=== PATIENT | female | born 1960 | race Caucasian/White ===

== ENCOUNTER → 2020-02-23 08:49 | Outpatient (REF) | payer OTHER, SELFPAY ==
--- NOTE | 2020-02-23 08:30 | CA_ITS ---
Transthoracic Echocardiogram Patient (Last, First, Middle): Marisa Hale J Gender: Female Date of : 1960 Age: 59 Procedure Date: 02/23/2020 Procedure Type: Transthoracic Echocardiogram Location: OP Height: 162.56 cm Weight: 80.74 kg BSA: 1.86 m2 Heart Rate: bpm BP: 122 / 60 mmHg Integration Director: Referring MD: Ozzie Johnson MD Symptoms: G45.9 TIA Study Quality: Fair ECG Rhythm: Sinus Conclusions: - The left ventricular systolic function is normal. The visually estimated ejection fraction is between 60-65%. - No obvious valvular pathology seen on this study. - If clinically indicated, consider bubble study to evaluate for interatrial shunting. Findings Left Ventricle Normal left ventricular cavity size. There is normal left ventricular wall thickness. The left ventricular systolic function is normal. The visually estimated ejection fraction is between 60-65%. There is no evidence of regional wall motion abnormalities. Diastolic function is normal for age. Right Ventricle Normal right ventricular cavity size and systolic function. Atria The left atrium is normal in size. The right atrium is normal in size. Aortic Valve There is a normal trileaflet aortic valve. There is no aortic valve stenosis. There is no aortic valve regurgitation. Mitral Valve The mitral valve appears normal. There is trace mitral valve regurgitation. There is no mitral valve stenosis. Pulmonic Valve The pulmonic valve was not well visualized. Tricuspid Valve Normal tricuspid valve structure. There is trace tricuspid valve regurgitation. The pulmonary artery systolic pressure is normal. Great Vessels The aortic annulus, sinuses of valsalva, and asc aorta are normal in size. Venous The inferior vena cava is normal in size and collapses greater than 50% with inspiration. Pericardium/Pleural There is no evidence of pericardial effusion. Prior Study Comparison No prior study available for comparison. Recommendations, Care & Conclusions No obvious valvular pathology seen on this study. Measurements 2D Linear Measurements IVSd: 0.95 0.6-0.9/0.6-1.0 cm LVIDd: 4.17 3.9-5.3/4.2-5.9 cm LVIDd Index: 2.24 2.4-3.2/2.2-3.1 cm/m2 LVIDs: 2.50 2.0-3.6 cm LVPWd: 0.94 0.7-1.1 cm Ao Root: 3.60 2.1-3.5 cm LA Diam: 2.20 2.7-3.8/3.0-4.0 cm LAIDs Index: 1.18 1.5-2.3 cm/m2 LV Mass: 155.92 67-162/88-224 g LV Mass Index: 83.83 43-95/49-115 g/m2 LVOT Diam: 2.30 3.0+(-)1.3 cm Mitral Valve MV Pk E: 0.45 MV PK A: 0.68 MV Decel Time: 176.00 E/A: 0.70 E'Lateral: 7.06 E'Medial: 6.29 E/E' Med: 7.10 E/E' Lat: 6.30 PHT: 52.00 MVA PHT: 4.23 Decel Door: 2.53 Aortic Valve AoV Pk Paco: 1.21 AoV Mn Paco: 0.88 AoV VTI: 0.29 AoV Pk Grad: 6.00 Aov Mn Grad: 3.00 JEANIE Cont.VTI: 2.85 LVOT LVOT Pk Paco: 0.87 LVOT Mn Paco: 0.58 LVOT VTI: 0.20 LVOT Pk Grad: 3.00 LVOT Mn Grad: 2.00 LVOT Diam: 2.30 LVOT Area: 4.15 Diastolic Function MV Pk E: 0.45 MV Pk A: 0.68 E/A: 0.70 E'Medial: 6.29 E/E' Med: 7.10 E' Laterial: 7.06 E/E' Lat: 6.30 Tricuspid Valve TR Pk Paco: 2.03 TR Pk Grad: 16.00 Great Vessels Aorta Ao Root-2D: 3.60 2.0-3.7 cm Ao Asc: 3.30 2.1-3.4 cm Pulmonary Valve PV Pk Paco: 0.76 Peak PV Grad: 2.00 Updated in Other Vendor System with Status of Final Humble Rivera MD electronically signed on 02/26/2020 10:14:03 AM with status of Final
--- NOTE | 2020-02-23 10:06 | US_ITS ---
EXAMINATION: US EXTRACRANIAL CAROTID DUPLEX, BILATERAL CLINICAL INFORMATION: Temporary aphasia COMPARISON: None TECHNIQUE: Real-time ultrasound and Doppler techniques (integrating B-mode 2-D vascular images, Doppler spectral analysis and color-flow Doppler imaging) were utilized to interrogate the extracranial carotid arteries, the vertebral arteries and proximal subclavian arteries bilaterally. The degree of stenosis is determined by criteria similar to NASCET. FINDINGS: Right Side: 1. There is no atherosclerotic plaque seen in the bifurcation/proximal ICA region. 2. The common carotid artery PSV proximally is 97.9 cm/s and distally 83.3 cm/s. 3. The proximal internal carotid artery velocities are 89.6 cm/s systolic and 35.4 cm/s diastolic. 4. The proximal external carotid artery PSV is 92.7 cm/s. 5. The vertebral artery shows antegrade flow. 6. The subclavian artery waveforms are normal. Left Side: 1. There is no atherosclerotic plaque seen in the bifurcation/proximal ICA region. 2. The common carotid artery PSV proximally is 101 cm/s and distally 85.6 cm/s. 3. The proximal internal carotid artery velocities are 87.4 cm/s systolic and 36.9 cm/s diastolic. 4. The proximal external carotid artery PSV is 68.4 cm/s. 5. The vertebral artery shows antegrade flow. 6. The subclavian artery waveforms are normal. IMPRESSION: 1. RIGHT: Normal right internal carotid artery without atherosclerotic plaque or hemodynamically significant stenosis. 2. LEFT: Normal left internal carotid artery without atherosclerotic plaque or hemodynamically significant stenosis.
== END ==
LOC: HO.CARD 08:49
PROVIDERS: Visit Provider Internal Medicine
DX: R47.01 Aphasia (principal)
CPT/HCPCS: 93306; 93880

== ENCOUNTER 2020-05-23 11:52 | Outpatient (REF) | payer OTHER, SELFPAY ==
[2020-05-23 12:18] LABS: COVID-19 Test Negative (Negative); IDNOW Serial# 55D5AD1C
== END 2020-05-23 11:53 | disposition home or self-care (01) ==
LOC: HO.EMPCOV 11:52
PROVIDERS: Visit Provider Internal Medicine
DX: Z20.828 Contact with and (suspected) exposure to other viral communicable diseases (principal)
CPT/HCPCS: 36415; 87635; C9803

== ENCOUNTER 2020-07-28 10:12 | Outpatient (REF) | payer OTHER, SELFPAY ==
[2020-07-28 13:33] LABS: MANUAL DIFF FLAG NO
[2020-07-28 13:39] LABS: Basophils Percent Auto 0.6 % (0-2); Eosinophils Absolute Auto 0.1 X10*3/uL (0.0-0.4); Eosinophils Percent Auto 1.9 % (0-4); Hematocrit 40.8 % (37-47); Hemoglobin 13.4 g/dl (12.0-16.0); Imm Gran Abs Auto 0.01 X10*3/uL (0.00-0.03); Imm Gran Pct Auto 0.2 % (0.0-0.4); Lymphocytes Absolute Auto 1.8 X10*3/uL (1.2-4.9); Lymphocytes Percent Auto 33.1 % (20-40); Mean Corpuscular HGB Conc 32.8 g/dl (31.0-35.0); Mean Corpuscular Hemoglobin 30.5 pg (27.0-33.0); Mean Corpuscular Volume 92.9 fL (80-98); Mean Platelet Volume 11.4 fL (9.4-12.3); Monocytes Absolute Auto 0.4 X10*3/uL (0.1-1.2); Monocytes Percent Auto 6.7 % (2-11); Neutrophils Absolute Auto 3.1 X10*3/uL (2.0-8.3); Neutrophils Percent Auto 57.5 % (45-73); Platelet Count 202 X10*3/uL (160-400); Red Blood Count 4.39 X10*6/uL (4.20-5.50); Red Cell Distribution Width 13.1 % (11.0-16.0); White Blood Count 5.4 X10*3/uL (4.8-10.8)
[2020-07-28 14:09] LABS: Alanine Aminotransferase 14 U/L (0-31); Anion Gap 12 (12-20); Aspartate Amino Transferase 14 U/L (5-31); Blood Urea Nitrogen 23 mg/dL (9-16); Calcium 9.5 mg/dL (8.4-10.2); Carbon Dioxide 27 mmol/L (22-29); Chloride 109 mmol/L (96-108); Cholesterol 155 mg/dL; Estimated Glomerular Filt Rate > 60; Glucose Fasting 104 mg/dL (60-99); HDL Cholesterol 55 mg/dL; LDL Cholesterol Calculated 81 mg/dl; Potassium 4.7 mmol/L (3.3-5.1); Sodium 143 mmol/L (135-145); Triglycerides 99 mg/dL
== END 2020-07-28 10:13 | disposition home or self-care (01) ==
LOC: HO.10HDL 10:12
PROVIDERS: Visit Provider Internal Medicine
DX: Z00.00 Encounter for general adult medical examination without abnormal findings (principal); E78.2 Mixed hyperlipidemia; Z51.81 Encounter for therapeutic drug level monitoring
CPT/HCPCS: 36415; 80048; 80061; 84450; 84460; 85025

== ENCOUNTER 2020-09-23 07:13 | Outpatient (REF) | payer OTHER, SELFPAY ==
--- NOTE | ~2020-09-23 | MM_ITS ---
EXAMINATION: MM SCREENING DIGITAL BREAST TOMOSYNTHESIS, BILATERAL CLINICAL INFORMATION: Screening. Asymptomatic. History reduction mammoplasty 2007. The lifetime risk of breast cancer based on the Tyrer-Cuzick Model is 10%. COMPARISON: Mammography: 07/15/2019, 08/29/2018, 08/09/2017, 06/14/2016, targeted left breast ultrasound 07/15/2019 TECHNIQUE: Digital breast tomosynthesis is performed in both the craniocaudal and mediolateral oblique views along with computer-aided detection (CAD). Synthesized 2D images are generated from the tomosynthesis. Additional left ML and exaggerated left CC views are provided. FINDINGS: There are scattered areas of fibroglandular density (ACR BI-RADS breast composition Category b). There is minor scarring and scattered predominantly anterior round and rim calcifications consistent with the prior history reduction mammoplasty. There is scattered fibronodular parenchymal pattern similar to prior exams. There is no developing density, significant mass, architectural abnormality, or abnormal calcifications. The axilla and skin contours are unremarkable. No significant changes. MM/MM tomosynthesis screening BI IMPRESSION: No significant changes from prior studies. ASSESSMENT: BI-RADS 2: Benign RECOMMENDATION: Routine annual mammography screening. This patient's information was entered into a reminder system with a target due date for their next mammogram.
== END 2020-09-23 07:14 | disposition home or self-care (01) ==
LOC: HO.MAMMO 07:13
PROVIDERS: Visit Provider Internal Medicine
DX: Z12.31 Encounter for screening mammogram for malignant neoplasm of breast (principal)
CPT/HCPCS: 77063; 77067

== ENCOUNTER 2020-11-07 16:10 | Outpatient (REF) | payer OTHER, SELFPAY ==
--- NOTE | ~2020-11-07 | US_ITS ---
EXAMINATION: US RETROPERITONEAL COMPLETE (RENAL) CLINICAL INFORMATION: Microscopic hematuria. Family history of malignant neoplasm of kidney. COMPARISON: CT abdomen and pelvis 06/23/2017. TECHNIQUE: Real-time imaging of the kidneys and bladder. FINDINGS: RIGHT KIDNEY: 12.2 x 5.4 x 5.1 cm (SAG x AP x TRV). The kidney is normal in size, contour, and echogenicity. Renal cortical thickness is normal. No calculi or focal parenchymal lesions. No hydronephrosis. LEFT KIDNEY: 12.0 x 6.2 x 3.5 cm (SAG x AP x TRV). The kidney is normal in size, contour, and echogenicity. Renal cortical thickness is normal. No calculi or focal parenchymal lesions. No hydronephrosis. BLADDER: Well distended and normal. Bilateral ureteral jets are demonstrated. Prevoid bladder volume is 465 mL. Postvoid bladder volume is 6.6 mL. US/US retroperitoneal comp IMPRESSION: Normal renal and bladder ultrasound.
== END 2020-11-07 16:11 | disposition home or self-care (01) ==
LOC: HO.US 16:10
PROVIDERS: Visit Provider Urology
DX: R31.29 Other microscopic hematuria (principal)
CPT/HCPCS: 76770

== ENCOUNTER 2021-01-31 08:33 | Outpatient (REF) | payer OTHER, SELFPAY ==
[2021-01-31 11:17] LABS: Alanine Aminotransferase 15 U/L (0-31); Aspartate Amino Transferase 16 U/L (5-31); Cholesterol 152 mg/dL; HDL Cholesterol 52 mg/dL; LDL Cholesterol Calculated 80 mg/dl; Triglycerides 100 mg/dL
== END 2021-01-31 08:34 | disposition home or self-care (01) ==
LOC: HO.10HDL 08:33
PROVIDERS: Visit Provider Internal Medicine
DX: E78.2 Mixed hyperlipidemia (principal); Z51.81 Encounter for therapeutic drug level monitoring
CPT/HCPCS: 36415; 80061; 84450; 84460

== ENCOUNTER 2021-02-22 08:44 | Outpatient (REF) | payer OTHER, SELFPAY ==
--- NOTE | ~2021-02-22 | XR_ITS ---
EXAMINATION: XR PELVIS CLINICAL INFORMATION: Pain COMPARISON: None TECHNIQUE: AP view of the pelvis. FINDINGS: Bone alignment is normal. No fracture or dislocation is seen. There is mild joint space narrowing at both hip joints. Bones of the pelvis are unremarkable. There are degenerative changes of the lower lumbar spine. Soft tissues are unremarkable. XR/XR pelvis 1-2V IMPRESSION: Mild joint space narrowing of both hip joints. Degenerative changes of the lower lumbar spine.
== END 2021-02-22 08:45 | disposition home or self-care (01) ==
LOC: HO.HOSX 08:44
PROVIDERS: Visit Provider Orthopaedic Surgery
DX: M70.61 Trochanteric bursitis, right hip (principal)
CPT/HCPCS: 72170

== ENCOUNTER 2021-08-11 10:42 | Outpatient (REF) | payer OTHER, SELFPAY ==
[2021-08-11 11:15] LABS: MANUAL DIFF FLAG NO
[2021-08-11 11:41] LABS: Basophils Percent Auto 0.6 % (0-2); Eosinophils Absolute Auto 0.2 X10*3/uL (0.0-0.4); Eosinophils Percent Auto 3.8 % (0-4); Hematocrit 40.6 % (37.0-47.0); Hemoglobin 13.4 g/dl (12.0-16.0); Imm Gran Abs Auto 0.02 X10*3/uL (0.00-0.03); Imm Gran Pct Auto 0.4 % (0.0-0.4); Lymphocytes Absolute Auto 1.8 X10*3/uL (1.2-4.9); Lymphocytes Percent Auto 34.2 % (20-40); Mean Corpuscular Hemoglobin 31.3 pg (27.0-33.0); Mean Corpuscular Volume 94.9 fL (80.0-98.0); Monocytes Absolute Auto 0.4 X10*3/uL (0.1-1.2); Monocytes Percent Auto 8.4 % (2-11); Neutrophils Absolute Auto 2.7 x10*3/uL (2.0-8.3); Neutrophils Percent Auto 52.6 % (45-73); Platelet Count 192 X10*3/uL (160-400); Red Blood Count 4.28 X10*6/uL (4.20-5.50); Red Cell Distribution Width 12.8 % (11.0-16.0); White Blood Count 5.2 X10*3/uL (4.8-10.8)
[2021-08-11 11:54] LABS: Estimated Average Glucose 120 mg/dL; Hemoglobin A1C 141.7713 umol/L; Hemoglobin A1c % 5.8 %
[2021-08-11 12:08] LABS: Alanine Aminotransferase 22 U/L (0-31); Anion Gap 12 (12-20); Aspartate Amino Transferase 17 U/L (5-31); Blood Urea Nitrogen 14 mg/dL (9-16); Calcium 9.6 mg/dL (8.4-10.2); Carbon Dioxide 26 mmol/L (22-29); Chloride 109 mmol/L (96-108); Cholesterol 165 mg/dL; Estimated Glomerular Filt Rate > 60; Glucose Random 87 mg/dL (60-115); HDL Cholesterol 47 mg/dL; LDL Cholesterol Calculated 88 mg/dl; Potassium 4.9 mmol/L (3.3-5.1); Sodium 142 mmol/L (135-145); Triglycerides 150 mg/dL
[2021-08-11 12:32] LABS: Free T4 (Free Thyroxine) 0.88 ng/dL (0.71-1.85); Thyroid Stimulating Hormone 2.04 uIU/mL (0.32-4.0)
[2021-08-12 06:36] LABS: Triiodothyronine T3 Free 3.1 pg/mL (2.3-4.2)
== END 2021-08-11 10:43 | disposition home or self-care (01) ==
LOC: HO.LAB 10:42
PROVIDERS: PCP Internal Medicine; Visit Provider Internal Medicine
DX: Z00.00 Encounter for general adult medical examination without abnormal findings (principal); E78.5 Hyperlipidemia, unspecified; Z51.81 Encounter for therapeutic drug level monitoring
CPT/HCPCS: 36415; 80048; 80061; 82550; 83036; 84439; 84443; 84450; 84460; 84481; 85025

== ENCOUNTER 2021-11-02 11:58 | Outpatient (REF) | payer OTHER, SELFPAY ==
--- NOTE | ~2021-11-02 | MM_ITS ---
EXAMINATION: MM SCREENING DIGITAL BREAST TOMOSYNTHESIS, BILATERAL CLINICAL INFORMATION: Screening. Asymptomatic. History reduction mammoplasty, 2008. The lifetime risk of breast cancer based on the Tyrer-Cuzick Model is 9%. COMPARISON: Mammography: 09/23/2020, 07/15/2019, 08/29/2018, 08/09/2017, 06/14/2016. TECHNIQUE: Digital breast tomosynthesis is performed in both the craniocaudal and mediolateral oblique views along with computer-aided detection (CAD). Synthesized 2D images are generated from the tomosynthesis. Additional left CC and left MLO views are provided. FINDINGS: There are scattered areas of fibroglandular density (ACR BI-RADS breast composition Category b). Parenchymal pattern is similar to prior studies. There is scattered fine smooth nodularity again seen. There is no significant mass or interval architectural abnormality or developing density. Again, there is minor scarring and scattered benign round and rim calcifications predominantly anterior breasts consistent with the prior mammoplasty. There are no abnormal calcifications. The axilla and skin contours are unremarkable. No significant changes from prior studies. MM/MM tomosynthesis screening BI IMPRESSION: No significant changes from prior exams. ASSESSMENT: BI-RADS 2: Benign RECOMMENDATION: Routine annual mammography screening. This patient's information was entered into a reminder system with a target due date for their next mammogram.
== END 2021-11-02 11:59 | disposition home or self-care (01) ==
LOC: HO.MAMMO 11:58
PROVIDERS: PCP Internal Medicine; Visit Provider Internal Medicine
DX: Z12.31 Encounter for screening mammogram for malignant neoplasm of breast (principal)
CPT/HCPCS: 77063; 77067

== ENCOUNTER 2022-02-01 08:06 | Outpatient (REF) | payer OTHER, SELFPAY ==
[2022-02-01 11:19] LABS: Estimated Average Glucose 123 mg/dL; Hemoglobin A1c % 5.9 %
[2022-02-01 11:21] LABS: Alanine Aminotransferase 18 U/L (0-31); Anion Gap 14 (12-20); Aspartate Amino Transferase 17 U/L (5-31); Blood Urea Nitrogen 15 mg/dL (9-16); Carbon Dioxide 24 mmol/L (22-29); Chloride 107 mmol/L (96-108); Cholesterol 173 mg/dL; Estimated Glomerular Filt Rate > 60; Glucose Random 100 mg/dL (60-115); HDL Cholesterol 46 mg/dL; LDL Cholesterol Calculated 111 mg/dl; Sodium 140 mmol/L (135-145); Triglycerides 82 mg/dL
== END 2022-02-01 08:07 | disposition home or self-care (01) ==
LOC: HO.10HDL 08:06
PROVIDERS: Visit Provider Internal Medicine
DX: E78.5 Hyperlipidemia, unspecified (principal); K76.0 Fatty (change of) liver, not elsewhere classified; R25.3 Fasciculation; Z51.81 Encounter for therapeutic drug level monitoring
CPT/HCPCS: 36415; 80048; 80061; 82550; 83036; 84450; 84460

== ENCOUNTER 2022-07-16 10:34 | Outpatient (REF) | payer OTHER, SELFPAY ==
[2022-07-16 13:42] LABS: Alanine Aminotransferase 19 U/L (0-31); Aspartate Amino Transferase 20 U/L (5-31); Cholesterol 197 mg/dL; HDL Cholesterol 50 mg/dL; LDL Cholesterol Calculated 122 mg/dl; Triglycerides 125 mg/dL
[2022-07-16 13:47] LABS: Estimated Average Glucose 126 mg/dL
== END 2022-07-16 10:35 | disposition home or self-care (01) ==
LOC: HO.10HDL 10:34
PROVIDERS: Visit Provider Internal Medicine
DX: E78.5 Hyperlipidemia, unspecified (principal); Z79.899 Other long term (current) drug therapy
CPT/HCPCS: 36415; 80061; 83036; 84450; 84460

== ENCOUNTER 2022-11-04 13:48 | Outpatient (REF) | payer OTHER, SELFPAY ==
--- NOTE | ~2022-11-04 | MM_ITS ---
EXAMINATION: MM SCREENING DIGITAL BREAST TOMOSYNTHESIS, BILATERAL CLINICAL INFORMATION: Screening. Asymptomatic. Remote reduction mammoplasty, 2007. The lifetime risk of breast cancer based on the Tyrer-Cuzick Model is 9%. COMPARISON: Mammography: 11/02/2021, 09/23/2020, 07/15/2019, 08/29/2018, 08/09/2017 TECHNIQUE: Digital breast tomosynthesis is performed in both the craniocaudal and mediolateral oblique views along with computer-aided detection (CAD). Synthesized 2D images are generated from the tomosynthesis. Additional bilateral MLO views are provided. FINDINGS: There are scattered areas of fibroglandular density (ACR BI-RADS breast composition Category b). Parenchymal pattern is similar to prior exams and there is no developing density or architectural abnormality, significant mass, or abnormal calcifications. Scattered fibronodular densities are similar to prior studies. There is minor scarring and scattered benign round, rim, and dermal calcifications consistent with the prior reduction mammoplasty. Incidental deodorant artifact overly the bilateral axilla on the initial MLO views. The axilla and skin contours are unremarkable. No significant changes from prior exams. MM/MM tomosynthesis screening BI IMPRESSION: No mammographic evidence of malignancy. ASSESSMENT: BI-RADS 2: Benign RECOMMENDATION: Routine annual mammography screening. This patient's information was entered into a reminder system with a target due date for their next mammogram.
== END 2022-11-04 13:49 | disposition home or self-care (01) ==
LOC: HO.MAMMO 13:48
PROVIDERS: PCP Internal Medicine; Visit Provider Advanced Practice Midwife
DX: Z12.31 Encounter for screening mammogram for malignant neoplasm of breast (principal)
CPT/HCPCS: 77063; 77067

== ENCOUNTER 2023-01-29 07:17 | Day surgery (SDC) | payer OTHER, SELFPAY ==
--- NOTE | 2023-01-28 11:50 | P.CONAN_ITS ---
Documented by User: Nadia Bazzi NP 01/28/23 11:50 HPI - Anesthesia Eval Consult details Narrative: 62yo F for Colonoscopy [facility] Active Problems Active Problems: All Active Problems (Updated 01/28/23 @ 09:38 by Tyra Langston RN) Greater trochanteric bursitis of right hip (Acute) Past Medical History Medical History (Updated 01/29/23 @ 07:50 by Tyra Langston RN) resulting from in-vitro fertilization Anxiety Internal hemorrhoid Abnormal colonoscopy OG on CPAP Hyperlipidemia Surgical History Surgical History (Updated 01/28/23 @ 09:38 by Tyra Langston RN) History of knee surgery History of hand surgery Social History Social History Patient Tobacco Use Status: Never used Tobacco Use of substances other than those prescribed or required for medical reasons: No Are you DNR?: No Advance Directives: No Advance Directives Information Provided: Yes Meds Allergies Allergy/AdvReac Type Severity Reaction Status Date / Time ceftin Allergy Unknown rash Uncoded 02/22/21 15:15 Home Medications Medication Instructions Recorded Confirmed Last Taken Type fluconazole 150 mg tablet mg PO 01/28/23 Unknown History paroxetine HCl 10 mg tablet 10 mg PO DAILY 01/28/23 Unknown History rosuvastatin 10 mg tablet 10 mg PO BEDTIME 01/28/23 Unknown History Exam Exam Date and Time: January 28, 2023 115 Assessment and Plan Assessment Anesthesia Assessment: Chart Reviewed Documented by User: Iggy Erickson MD 01/29/23 18:00 PMFSH Past Medical History Medical History (Updated 01/29/23 @ 07:50 by Tyra Langston RN) resulting from in-vitro fertilization Anxiety Internal hemorrhoid Abnormal colonoscopy OG on CPAP Hyperlipidemia Functional capacity: independent ambulation Family History Family history of problems with anesthesia: No Surgical History Surgical History (Updated 01/28/23 @ 09:38 by Tyra Langston RN) History of knee surgery History of hand surgery History of Problems with Anesthesia: No Social History Social History Patient Tobacco Use Status: Never used Tobacco Use of substances other than those prescribed or required for medical reasons: No Are you DNR?: No Advance Directives: No Advance Directives Information Provided: Yes Meds Allergies Allergy/AdvReac Type Severity Reaction Status Date / Time ceftin Allergy Unknown rash Uncoded 02/22/21 15:15 Home Medications Medication Instructions Recorded Confirmed Last Taken Type fluconazole 150 mg tablet mg PO 01/28/23 Unknown History paroxetine HCl 10 mg tablet 10 mg PO DAILY 01/28/23 Unknown History rosuvastatin 10 mg tablet 10 mg PO BEDTIME 01/28/23 Unknown History Exam Airway Mallampati Class: III Neck ROM: Full Loose/Missing/Broken Teeth: Yes (chipped teeth ) Assessment and Plan Assessment Anesthesia Assessment: Anesthesia Plan Discussed Final Anesthetic Review Family History of Problems with Anesthesia: No History of Problems with Anesthesia: No NPO: Yes ASA Class: II Final Preanesthetic Review: Meds/Allgs Chart Reviewed, Consent Obtained/Reviewed and Anes Risks/Benef Reviewed Patient Risk: Intermediate Procedure Risk: Intermediate Anesthetic Plan Anesthetic Plan: MAC: and Agree w/ Assess. and Plan Disposition: Standard PACU
[2023-01-29 07:51] VITALS: BMI 30.2
[2023-01-29 07:57] VITALS: BP 135/68; PULSE 64; RESP 16; TEMP 36.6; O2SAT 99
[2023-01-29] MEDS: Lactated Ringers 1,000 ML 100 ML IVCONT (08:11)
[2023-01-29 10:00] VITALS: BP 111/58; PULSE 79; RESP 16; TEMP 36.4; O2SAT 94
--- NOTE | 2023-01-29 10:01 | P.BOP_ITS ---
Brief Operative Note Date of Service: 01/29/23 Pre-op diagnosis: Screening Post-op diagnosis: other (Diverticulosis, Internal hemorrhoids) Procedure: Colonosocpy to the cecum Surgeon: Wilson Krueger Anesthesia: MAC Was an Criminalist Technician used for this Procedure?: No Estimated blood loss (mL): 0 Pathology: none sent Condition: stable Disposition: PACU
[2023-01-29 10:15] VITALS: BP 96/59; PULSE 64; RESP 16; O2SAT 95
--- NOTE | 2023-01-29 10:26 | OP_ITS ---
DATE OF SERVICE: 01/29/2023 SURGEON: Wilson Krueger MD INDICATIONS: The patient presents for evaluation of personal history of tubular adenoma of the colon and colorectal cancer screening. Full consent was obtained from her for this, including risks of bleeding and perforation. PREOPERATIVE DIAGNOSIS: POSTOPERATIVE DIAGNOSIS: PROCEDURE PERFORMED: Colonoscopy to the cecum. ESTIMATED BLOOD LOSS: COMPLICATIONS: ANESTHESIA: Monitored anesthesia care. ASSISTANTS: SPECIMENS: PREOPERATIVE DIAGNOSES: Colorectal cancer screening and personal history of tubular adenomas of the colon. POSTOPERATIVE DIAGNOSES: Colorectal cancer screening and personal history of tubular adenomas of the colon, diverticulosis and internal hemorrhoids. DESCRIPTION OF PROCEDURE: The patient was placed in the left lateral decubitus position. The digital rectal exam revealed no abnormalities. The Olympus video pediatric colonoscope was entered into the rectum and advanced easily to the cecum. Once in the cecum, I did identify normal-appearing cecal pouch with appendiceal orifice and a normal-appearing ileocecal valve. The entire cecum and ileocecal valve appeared normal. The scope was slowly withdrawn assessing all mucosal surfaces carefully. Preparation was excellent. I did not visualize any sign of polyps, colitis, or angiodysplasia. There was a mild amount of sigmoid diverticulosis. In the rectum, scope was retroflexed visualizing some small internal hemorrhoids, but no other pathology. The rectal mucosa appeared normal. The scope was straightened and withdrawn the patient. She tolerated the procedure well and was returned to the recovery area in stable condition. IMPRESSION: 1. Sigmoid diverticulosis. 2. Small internal hemorrhoids. PLAN: I would recommend a repeat colonoscopy in 5 years for further screening. She does report that her previous issue with some rectal discomfort has resolved. That may or may not have been related to the internal hemorrhoids, but at this point, we shall simply observe things. If the situation recurs, she could always try some [id number] Preparation-H or Anusol suppository to see if that would give her relief. However, if the discomfort is no longer an issue, I would recommend holding off on that and simply observing things. She will otherwise see me on a p.r.n. basis. MD ANIKET Scott/MANNY / [phone] MTDDarell
[2023-01-29 10:30] VITALS: BP 104/58; PULSE 66; RESP 16; TEMP 36.3; O2SAT 96
== END 2023-01-29 11:09 | disposition home or self-care (01) ==
PROVIDERS: PCP Internal Medicine; Visit Provider Internal Medicine
PROC: 0DJD8ZZ Inspection of Lower Intestinal Tract, Via Natural or Artificial Opening Endoscopic (ICD-10-PCS; CPT 45378; principal; 2023-01-29 08:30)
DX: Z12.11 Encounter for screening for malignant neoplasm of colon (principal); Z86.010 Personal history of colon polyps; K57.30 Diverticulosis of large intestine without perforation or abscess without bleeding; K64.8 Other hemorrhoids; F41.1 Generalized anxiety disorder; E78.5 Hyperlipidemia, unspecified; M70.61 Trochanteric bursitis, right hip; G47.33 Obstructive sleep apnea (adult) (pediatric); Z79.899 Other long term (current) drug therapy; Z88.1 Allergy status to other antibiotic agents
CPT/HCPCS: 45378; J2405; J2765

== ENCOUNTER 2023-07-02 11:00 | Outpatient (REF) | payer OTHER, SELFPAY ==
[2023-07-02 13:21] LABS: MANUAL DIFF FLAG NO
[2023-07-02 13:26] LABS: Basophils Percent Auto 0.4 % (0-2); Eosinophils Absolute Auto 0.2 X10*3/uL (0.0-0.4); Eosinophils Percent Auto 4.4 % (0-4); Hemoglobin 13.8 g/dl (12.0-16.0); Imm Gran Abs Auto 0.02 X10*3/uL (0.00-0.03); Imm Gran Pct Auto 0.4 % (0.0-0.4); Lymphocytes Absolute Auto 1.8 X10*3/uL (1.2-4.9); Lymphocytes Percent Auto 35.6 % (20-40); Mean Corpuscular HGB Conc 33.7 g/dl (31.0-35.0); Mean Corpuscular Hemoglobin 30.9 pg (27.0-33.0); Mean Corpuscular Volume 91.9 fL (80.0-98.0); Mean Platelet Volume 11.4 fL (9.4-12.3); Monocytes Absolute Auto 0.4 X10*3/uL (0.1-1.2); Monocytes Percent Auto 8.3 % (2-11); Neutrophils Absolute Auto 2.5 x10*3/uL (2.0-8.3); Neutrophils Percent Auto 50.9 % (45-73); Platelet Count 186 X10*3/uL (160-400); Red Blood Count 4.46 X10*6/uL (4.20-5.50); Red Cell Distribution Width 13.1 % (11.0-16.0)
[2023-07-02 13:37] LABS: Estimated Average Glucose 117 mg/dL; Hemoglobin A1c % 5.7 % (<6.0)
[2023-07-02 13:45] LABS: Alanine Aminotransferase 20 U/L (0-31); Aspartate Amino Transferase 19 U/L (5-31); Cholesterol 191 mg/dL (<200); HDL Cholesterol 56 mg/dL (>40); LDL Cholesterol Calculated 107 mg/dL (<100); Triglycerides 142 mg/dL (<150)
[2023-07-02 14:01] LABS: Thyroid Stimulating Hormone 1.65 uIU/mL (0.32-4.0)
== END 2023-07-02 11:01 | disposition home or self-care (01) ==
LOC: HO.HMGCLDS 11:00
PROVIDERS: PCP Internal Medicine; Visit Provider Internal Medicine
DX: Z00.00 Encounter for general adult medical examination without abnormal findings (principal); R78.5 Finding of other psychotropic drug in blood; Z79.899 Other long term (current) drug therapy
CPT/HCPCS: 36415; 80061; 83036; 84443; 84450; 84460; 85025

== ENCOUNTER 2023-12-29 09:40 | Outpatient (REF) | payer OTHER, SELFPAY ==
--- NOTE | ~2023-12-29 | MM_ITS ---
EXAMINATION: MM SCREENING DIGITAL BREAST TOMOSYNTHESIS, BILATERAL CLINICAL INFORMATION: Screening. Asymptomatic. Remote reduction mammoplasties, 2008. COMPARISON: Mammography: 11/04/2022, 11/02/2021, 09/23/2020, 07/15/2019, 08/29/2018. TECHNIQUE: Digital breast tomosynthesis is performed in both the craniocaudal and mediolateral oblique views along with computer-aided detection (CAD). Synthesized 2D images are generated from the tomosynthesis. FINDINGS: There are scattered areas of fibroglandular density (ACR BI-RADS breast composition Category b). Stable subtle foci scarring from reduction mammoplasty, along with dermal and a few scattered dystrophic calcifications bilaterally. Stable fibronodular parenchymal pattern without change. There are no suspicious masses, suspicious grouped calcifications, or suspicious areas of architectural distortion in either breast. No skin or axillary abnormalities. MM/MM tomosynthesis screening BI IMPRESSION: No mammographic evidence of malignancy. Stable benign findings. ASSESSMENT: BI-RADS BI-RADS 2 - Benign Findings RECOMMENDATION: Routine annual mammography screening. 1 year F/U This examination should not preclude the clinical evaluation of a suspicious palpable abnormality. This patient's information was entered into a reminder system with a target due date for their next mammogram. Electronically signed by: Keny Foreman MD 01/12/2024 12:58 PM EDT
== END 2023-12-29 09:41 | disposition home or self-care (01) ==
LOC: HO.MAMMO 09:40
PROVIDERS: PCP Internal Medicine; Visit Provider Advanced Practice Midwife
DX: Z12.31 Encounter for screening mammogram for malignant neoplasm of breast (principal)
CPT/HCPCS: 77063; 77067

== ENCOUNTER → 2023-12-29 09:45 | Outpatient (BNV) | payer OTHER, SELFPAY | PROVIDERS: PCP Internal Medicine; Visit Provider Radiology Diagnostic Radiology | DX: Z12.31 Encounter for screening mammogram for malignant neoplasm of breast (principal) | CPT/HCPCS: 77063; 77067 ==

== ENCOUNTER 2023-12-30 10:00 | Outpatient (REF) | payer OTHER, SELFPAY ==
[2023-12-30 10:51] LABS: MANUAL DIFF FLAG NO
[2023-12-30 11:00] LABS: Basophils Percent Auto 0.7 % (0-2); Eosinophils Absolute Auto 0.3 X10*3/uL (0.0-0.4); Eosinophils Percent Auto 4.8 % (0-4); Hematocrit 39.9 % (37.0-47.0); Hemoglobin 13.2 g/dl (12.0-16.0); Imm Gran Abs Auto 0.01 X10*3/uL (0.00-0.03); Imm Gran Pct Auto 0.2 % (0.0-0.4); Lymphocytes Absolute Auto 1.7 X10*3/uL (1.2-4.9); Lymphocytes Percent Auto 32.1 % (20-40); Mean Corpuscular HGB Conc 33.1 g/dl (31.0-35.0); Mean Corpuscular Hemoglobin 30.9 pg (27.0-33.0); Mean Corpuscular Volume 93.4 fL (80.0-98.0); Mean Platelet Volume 10.8 fL (9.4-12.3); Monocytes Absolute Auto 0.5 X10*3/uL (0.1-1.2); Neutrophils Absolute Auto 2.9 x10*3/uL (2.0-8.3); Neutrophils Percent Auto 53.2 % (45-73); Platelet Count 195 X10*3/uL (160-400); Red Blood Count 4.27 X10*6/uL (4.20-5.50); Red Cell Distribution Width 13.2 % (11.0-16.0); White Blood Count 5.4 X10*3/uL (4.8-10.8)
[2023-12-30 11:12] LABS: Estimated Average Glucose 120 mg/dL; Hemoglobin A1c % 5.8 % (<6.0)
[2023-12-30 11:34] LABS: Alanine Aminotransferase 18 U/L (0-31); Anion Gap 10 (12-20); Aspartate Amino Transferase 18 U/L (5-31); Blood Urea Nitrogen 11 mg/dL (9-16); Calcium 9.2 mg/dL (8.4-10.2); Carbon Dioxide 27 mmol/L (22-29); Chloride 107 mmol/L (96-108); Cholesterol 179 mg/dL (<200); Estimated Glomerular Filt Rate > 60; Glucose Random 95 mg/dL (60-115); HDL Cholesterol 52 mg/dL (>40); LDL Cholesterol Calculated 91 mg/dL (<100); Potassium 4.5 mmol/L (3.3-5.1); Sodium 139 mmol/L (135-145); Thyroid Stimulating Hormone 1.76 uIU/mL (0.32-4.0); Triglycerides 180 mg/dL (<150)
== END 2023-12-30 10:01 | disposition home or self-care (01) ==
LOC: HO.10HDL 10:00
PROVIDERS: Visit Provider Internal Medicine
DX: Z00.00 Encounter for general adult medical examination without abnormal findings (principal); E78.5 Hyperlipidemia, unspecified; Z79.899 Other long term (current) drug therapy
CPT/HCPCS: 36415; 80048; 80061; 82306; 83036; 84443; 84450; 84460; 85025

== ENCOUNTER 2024-06-08 16:23 | Outpatient (REF) | payer OTHER, SELFPAY ==
--- NOTE | ~2024-06-08 | US_ITS ---
CLINICAL HISTORY: microscopic hematuria US Renal Comparison: US - US RETROPERITONEAL COMP - 11/07/20 16:26 EDT Findings: Right kidney normal size and echotexture, 11.5 cm length. Left kidney normal size and echotexture, 11.6 cm length. No collecting system dilatation of either kidney. Normal color Doppler. Urinary bladder is unremarkable. Prevoid volume 497 mL. Postvoid volume 12 mL. Bilateral ureteral jets are visualized. IMPRESSION: 1. No acute abnormality of the kidneys. This document has been electronically signed by: Cammie Recinos MD on 06/08/2024 17:36:37
== END 2024-06-08 16:24 | disposition home or self-care (01) ==
LOC: HO.US 16:23
PROVIDERS: PCP Internal Medicine; Visit Provider Student in an Organized Health Care Education/Training Program
DX: R31.29 Other microscopic hematuria (principal)
CPT/HCPCS: 76770

== ENCOUNTER → 2024-06-08 16:38 | Outpatient (BNV) | payer OTHER, SELFPAY | PROVIDERS: PCP Internal Medicine; Visit Provider Radiology Diagnostic Radiology | DX: R31.29 Other microscopic hematuria (principal) | CPT/HCPCS: 76770 ==

== ENCOUNTER → 2024-10-07 10:30 | Outpatient (BNV) | payer OTHER, SELFPAY | PROVIDERS: PCP Internal Medicine; Visit Provider Internal Medicine | DX: N63.32 Unspecified lump in axillary tail of the left breast (principal) | CPT/HCPCS: 76642 ==

== ENCOUNTER 2024-10-07 10:36 | Outpatient (REF) | payer OTHER, SELFPAY ==
--- NOTE | ~2024-10-07 | US_ITS ---
EXAMINATION: US DIAGNOSTIC ULTRASOUND BREAST, LEFT CLINICAL INFORMATION: Left axillary palpable lump.. COMPARISON: Comparison is made with relevant prior imaging. TECHNIQUE: Ultrasound of the breast is performed with real-time tamayo scale imaging and color Doppler. FINDINGS: Targeted color Doppler ultrasound scanning in the left axilla in the area the patient's palpable lump demonstrates normal subcutaneous tissue there is normal skin thickness. No sonographic abnormal finding is seen. Results are discussed with the patient at time of visit. US/US breast LT limited mamm only IMPRESSION: No sonographic abnormality to correlate with the patient's left axillary palpable lump. Recommend clinical evaluation and follow-up. If this area changes increases in size or firmness additional diagnostic imaging is recommended. ASSESSMENT: BI-RADS 1: Negative RECOMMENDATION: Recommend clinical evaluation and followup This patient's information was entered into a reminder system with a target due date for their next mammogram. Electronically signed by: Misty Moreira DO 10/07/2024 11:29 AM EDT
--- OUTSIDE RECORDS SUMMARY | 2024-10-07 11:12 | XMS_ITS | Patient Health Record ---
Author Organization [facility] Address [address] [place] [address] Care Team Providers Care Outsole Splicer Name Role Phone Alex LEY, Ozzie Primary Care Provider Wilson Keita Unavailable [phone] Allergies No Known Allergies Reason For Referral No Information Medications Medication SIG (Take, Route, Frequency, Duration) Notes Start Date End Date Status PARoxetine HCl 10 MG TAKE ONE TABLET BY MOUTH EVERY DAY Oral for 90 Active Calcium + D 500-1000-40 MG-UNT-MCG as directed Orally once a day Active Vitamin B12 1000 MCG 1 tablet Orally Onc e a day for 30 day(s) Active Rosuvastatin Calcium 10 MG 1 tablet Oral ly Once a day for 30 day(s) Active Immunizations Vaccine Route Administration Date Status Comme nts Influenza Unknown 05/07/2018 Administered Influenza Unknown 03/05/2022 Administered Social History Tobacco Use: Social History Observation Description Date Details (start date - stop date) Never Smoker NA - NA Tobacco Use/Smoking Question Answer Notes Patient is a nonsmoker Alcohol Screen Question Answer Notes Did you have a drink containing alcohol in the p ast year? No Points 0 Interpretation Negative Section Notes: Nonsmoker; no sig alcohol Nonsmoker; no sig alcohol Problems Problem Type SNOMED Code ICD Code Onset Dates Problem Status W/U Status Risk Notes Problem 214799999 Colon cancer screening (Z12.11) Active confirmed Problem 724782839 Encounter for screening for malignant neoplasm of colon (Z12.11) Active confirmed Problem 111653258 History of adenomatous polyp of colon (Z86.010) Active confirmed Problem 002144657506725 Pre-procedural examination (Z01.818) Active confirmed Problem 95279868 Rectal discomfor t (K62.89) Active confirmed Problem History of polyp of colon (situation) (885955594) History of colonic polyps (Z86.010) Active confirmed Problem Diverticulosis of colon (617318974) Diverticulosis of colon (K57.30) Active confirmed Problem 095432295 Hx of adenomatou s polyp of colon (Z86.010) Active confirmed Plan Of Treatment Future Test Test Name Order Date COLONOSCOPY 10/14/2018 COLONOSCOPY 11/13/2022 Insurance Providers Payer Name Payer Address Payer Phone Subscriber Number Group Number Insured Name Patient Relationship to Insured Coverage Start Date Coverage End Date [employer] [place] [address] [address] [place] [address] [id number] ISRAEL STALEY Self - patient is the insured Medical (General) History Medical History History ICD Code Denies [place],DM,CVA,Lung disease,renal dise ase Tubular adenoma removed in and 2005--each < 5mm; neg. colonoscopy in 2011-all with Dr. Frausto Hyperlipidemia Sleep apnea-uses CPAP Colonoscopy in January 8 with a small tubular adenoma removed and small internal hemorrhoids noted Anxiety Surgical History Surgery Date(Month/Year) Knee surgery 1999 Hand surgery 2004
== END 2024-10-07 10:37 | disposition home or self-care (01) ==
LOC: HO.MAMMO 10:36
PROVIDERS: PCP Internal Medicine; Visit Provider Advanced Practice Midwife
DX: N63.32 Unspecified lump in axillary tail of the left breast (principal)
CPT/HCPCS: 76642

== ENCOUNTER 2024-10-29 09:11 | Outpatient (REF) | payer OTHER, SELFPAY ==
--- OUTSIDE RECORDS SUMMARY | 2024-10-29 09:34 | XMS_ITS | Patient Health Record ---
Author Organization [facility] Address [address] [place] [address] Care Team Providers Care Strike Off Machine Operator Name Role Phone Alex LEY, Ozzie Primary Care Provider Wilson Keita Unavailable [phone] Allergies No Known Allergies Reason For Referral [...] Problem Status W/U Status Risk Notes Problem 321090947 Colon cancer screening (Z12.11) Active confirmed Problem 496357406 Encounter for screening for malignant neoplasm of colon (Z12.11) Active confirmed Problem 703000885 History of adenomatous polyp of colon (Z86.010) Active confirmed Problem 466438415915177 Pre-procedural examination (Z01.818) Active confirmed Problem 62620459 Rectal discomfor t (K62.89) Active confirmed Problem History of colonic polyps (Z86.010) Active confirmed Problem Diverticulosis of colon (502832545) Diverticulosis of colon (K57.30) Active confirmed Problem 910498404 Hx of adenomatou s polyp of colon (Z86.010) Active confirmed Plan Of Treatment Future Test Test Name Order Date COLONOSCOPY 10/14/2018 COLONOSCOPY 11/13/2022 Insurance Providers Payer Name Payer Address Payer Phone Subscriber Number Group Number Insured Name Patient Relationship to Insured Coverage Start Date Coverage End Date [employer] [place] [address] [address] [place] [address] [id number] ISRAEL STALEY Self - patient is the insured Medical (General) History Medical History History ICD Code Denies [place],DM,CVA,Lung disease,renal dise ase Tubular adenoma removed in and 2005--each < 5mm; neg. colonoscopy in 2011-all with Dr. Frausto Hyperlipidemia Sleep apnea-uses CPAP Colonoscopy in January 8 with a small tubular adenoma removed and small internal hemorrhoids noted Anxiety Surgical History Surgery Date(Month/Year) Knee surgery 1999 Hand surgery 2004
[2024-10-29 10:47] LABS: Estimated Average Glucose 123 mg/dL; Hemoglobin A1C 144.0307 umol/L; Hemoglobin A1c % 5.9 % (<6.0); Total Hemoglobin (HGBA1C) 3515.6325 umol/L
[2024-10-29 11:07] LABS: Alanine Aminotransferase 22 U/L (0-31); Aspartate Amino Transferase 23 U/L (5-31); Cholesterol 151 mg/dL (<200); HDL Cholesterol 52 mg/dL (>40); LDL Cholesterol Calculated 84 mg/dL (<100); Triglycerides 75 mg/dL (<150)
== END 2024-10-29 09:12 | disposition home or self-care (01) ==
LOC: HO.10HDL 09:11
PROVIDERS: Visit Provider Internal Medicine
DX: E78.2 Mixed hyperlipidemia (principal); Z51.81 Encounter for therapeutic drug level monitoring; R73.03 Prediabetes
CPT/HCPCS: 36415; 80061; 82306; 83036; 84450; 84460

== ENCOUNTER 2024-11-23 09:52 | Outpatient (REF) | payer OTHER, SELFPAY ==
--- OUTSIDE RECORDS SUMMARY | 2024-11-23 10:31 | XMS_ITS | Patient Health Record ---
Author Organization [facility] Address [address] [place] [address] Care Team Providers Care Whipped Topping Finisher Name Role Phone Alex LEY, Ozzie Primary Care Provider Wilson Keita Unavailable [phone] Allergies No Known Allergies Reason For Referral [...] Problem Status W/U Status Risk Notes Problem 422313182 Colon cancer screening (Z12.11) Active confirmed Problem 515854899 Encounter for screening for malignant neoplasm of colon (Z12.11) Active confirmed Problem 622129735 History of adenomatous polyp of colon (Z86.010) Active confirmed Problem 600726245732134 Pre-procedural examination (Z01.818) Active confirmed Problem 85979581 Rectal discomfor t (K62.89) Active confirmed Problem History of colonic polyps (Z86.010) Active confirmed Problem Diverticulosis of colon (298770083) Diverticulosis of colon (K57.30) Active confirmed Problem 885758446 Hx of adenomatou s polyp of colon (Z86.010) Active confirmed Plan Of Treatment Future Test Test Name Order Date COLONOSCOPY 10/14/2018 COLONOSCOPY 11/13/2022 Insurance Providers Payer Name Payer Address Payer Phone Subscriber Number Group Number Insured Name Patient Relationship to Insured Coverage Start Date Coverage End Date [employer] [place] [address] [address] [place] [address] [id number] ISRAEL STALEY Self - patient is the insured Medical (General) History Medical History History ICD Code Denies [place],DM,CVA,Lung disease,renal dise ase Tubular adenoma removed in and 2005--each < 5mm; neg. colonoscopy in 2011-all with Dr. Frausto Hyperlipidemia Sleep apnea-uses CPAP Colonoscopy in January 8 with a small tubular adenoma removed and small internal hemorrhoids noted Anxiety Surgical History Surgery Date(Month/Year) Knee surgery 1999 Hand surgery 2004
== END 2024-11-23 09:53 | disposition home or self-care (01) ==
LOC: HO.10HDL 09:52
PROVIDERS: Visit Provider Internal Medicine
DX: E55.9 Vitamin D deficiency, unspecified (principal); Z79.899 Other long term (current) drug therapy
CPT/HCPCS: 36415; 82306

== ENCOUNTER 2025-01-22 07:18 | Outpatient (REF) | payer OTHER, SELFPAY ==
--- NOTE | ~2025-01-22 | MM_ITS ---
EXAMINATION: MM SCREENING DIGITAL BREAST TOMOSYNTHESIS, BILATERAL CLINICAL INFORMATION: Screening. Asymptomatic. COMPARISON: Mammography: Comparison is made with available priors TECHNIQUE: Digital breast mammography with tomosynthesis is performed in both the craniocaudal and mediolateral oblique views along with computer-aided detection (CAD). FINDINGS: There are scattered areas of fibroglandular density (ACR BI-RADS breast composition Category b). Bilateral reduction mammoplasty. Bilateral circumscribed oval masses which wax and wane consistent with benign fibrocystic changes. There are no significant masses, abnormal calcifications, or other abnormalities. MM/MM tomosynthesis screening BI IMPRESSION: No mammographic evidence of malignancy. ASSESSMENT: BI-RADS BI-RADS 2 - Benign Findings RECOMMENDATION: Routine annual mammography screening. 1 year F/U This examination should not preclude the clinical evaluation of a suspicious palpable abnormality. This patient's information was entered into a reminder system with a target due date for their next mammogram. Electronically signed by: Misty Moreira DO 01/24/2025 08:51 AM EDT
--- OUTSIDE RECORDS SUMMARY | 2025-01-22 07:21 | XMS_ITS | Patient Health Record ---
Author Organization [facility] Address [address] [place] [address] Care Team Providers Care Bee Producer Name Role Phone Alex LEY, Ozzie Primary Care Provider Wilson Keita Unavailable [phone] Allergies No Known Allergies Reason For Referral [...] Problem Status W/U Status Risk Notes Problem 618361151 Colon cancer screening (Z12.11) Active confirmed Problem 645891920 Encounter for screening for malignant neoplasm of colon (Z12.11) Active confirmed Problem 955359621 History of adenomatous polyp of colon (Z86.010) Active confirmed Problem 112887099523574 Pre-procedural examination (Z01.818) Active confirmed Problem 24417017 Rectal discomfor t (K62.89) Active confirmed Problem History of polyp of colon (situation) (931335052) History of colonic polyps (Z86.010) Active confirmed Problem Diverticulosis of colon (358375320) Diverticulosis of colon (K57.30) Active confirmed Problem 427405773 Hx of adenomatou s polyp of colon (Z86.010) Active confirmed Plan Of Treatment Future Test Test Name Order Date COLONOSCOPY 10/14/2018 COLONOSCOPY 11/13/2022 Insurance Providers Payer Name Payer Address Payer Phone Subscriber Number Group Number Insured Name Patient Relationship to Insured Coverage Start Date Coverage End Date [employer] [place] [address] [address] [place] [address] [id number] ISRAEL STALEY Self - patient is the insured Medical (General) History Medical History History ICD Code Denies [place],DM,CVA,Lung disease,renal dise ase Tubular adenoma removed in and 2005--each < 5mm; neg. colonoscopy in 2011-all with Dr. Frausto Hyperlipidemia Sleep apnea-uses CPAP Colonoscopy in January 8 with a small tubular adenoma removed and small internal hemorrhoids noted Anxiety Surgical History Surgery Date(Month/Year) Knee surgery 1999 Hand surgery 2004
== END 2025-01-22 07:19 | disposition home or self-care (01) ==
LOC: HO.MAMMO 07:18
PROVIDERS: PCP Internal Medicine; Visit Provider Internal Medicine
DX: Z12.31 Encounter for screening mammogram for malignant neoplasm of breast (principal)
CPT/HCPCS: 77063; 77067

== ENCOUNTER → 2025-01-22 09:30 | Outpatient (BNV) | payer OTHER, SELFPAY | PROVIDERS: PCP Internal Medicine; Visit Provider Internal Medicine | DX: Z12.31 Encounter for screening mammogram for malignant neoplasm of breast (principal) | CPT/HCPCS: 77063; 77067 ==

== ENCOUNTER 2025-04-21 08:11 | Outpatient (AMB) | payer OTHER, SELFPAY ==
--- OUTSIDE RECORDS SUMMARY | 2025-04-21 08:22 | XMS_ITS | Patient Health Record ---
Author Organization [facility] Address [address] [place] [address] Care Team Providers Care Reinsurance Clerk Name Role Phone Alex LEY, Ozzie Primary Care Provider Wilson Keita [phone] Allergies No Known Allergies Reason For Referral No Information Medications Medication SIG (Take, Route, Frequency, Duration) Notes Start Date End Date Status PARoxetine HCl 10 MG Tablet TAKE ONE TAB LET BY MOUTH EVERY DAY Oral; Duration: 90 Active Calcium + D 500-1000-40 MG-UNT-MCG Tablet Chewable as directed Orally once a day Active Vitamin B12 1000 MCG Tablet Extended Release 1 tablet Orally Once a day; Duration: 30 day(s) Active Rosuvastatin Calcium 10 MG Tablet 1 tablet Orally Once a day; Duration: 30 day(s) Active Immunizations Vaccine Route Administration Date Status Comme nts Influenza Unknown 05/07/2018 Administered Influenza Unknown 03/05/2022 Administered Social History Tobacco Use: Social History Observation Description Date Details (start date - stop date) Never Smoker NA - NA Social History Drugs/Alcohol: Social Info Question Answer Notes Alcohol Screen Did you have a drink containing alcohol in the past year? No Points 0 Interpretation Negative Tobacco Use: Social Info Question Answer Notes Tobacco Use/Smoking Patient is a nonsmoker Additional Details Category Social Info Options Details Miscellaneous: Marital status: Occupation: X-Ray tech at [employer] Section Notes: Nonsmoker; no sig alcohol Nonsmoker; no sig alcohol Problems Problem Type SNOMED Code ICD Code Onset Dates Problem Status W/U Status Risk Notes Problem Colon cancer screening (466193489) Colon cancer screening (Z12.11) Active confirmed Problem Screening for malignant neoplasm of colon (226634655) Encounter for screening for malignant neoplasm of colon (Z12.11) Active confirmed Problem History of adenomatous polyp of colon (296408888) History of adenomatous polyp of colon (Z86.010) Active confirmed Problem Pre-procedure evaluation check (823331142) Pre-procedural examination (Z01.818) Active confirmed Problem Rectal pain (32622564) Rectal discomfort (K62.89) Active confirmed Problem History of polyp of colon (situation) (722424039) History of colonic polyps (Z86.010) Active confirmed Problem Diverticulosis of colon (825872622) Diverticulosis of colon (K57.30) Active confirmed Problem History of adenomatous polyp of colon (919162137) Hx of adenomatous polyp of colon (Z86.010) Active confirmed Plan Of Treatment Future Test Test Name Order Date COLONOSCOPY 10/14/2018 COLONOSCOPY 11/13/2022 Insurance Providers Payer Name Payer Address Payer Phone Subscriber Number Group Number Insured Name Patient Relationship to Insured Coverage Start Date Coverage End Date [employer] [place] [address] [address] [place] [address] [id number] ISRAEL STALEY Self - patient is the insured Medical (General) History Medical History History ICD Code Denies [place],DM,CVA,Lung disease,renal dise ase Tubular adenoma removed in and 2005--each < 5mm; neg. colonoscopy in 2011-all with Dr. Frausto Hyperlipidemia Sleep apnea-uses CPAP Colonoscopy in January with a small tubular adenoma removed and small internal hemorrhoids noted Anxiety Surgical History Surgery Date(Month/Year) Knee surgery 1999 Hand surgery 2004
[2025-04-21 08:26] VITALS: BP 114/68; PULSE 78; O2SAT 98
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
== END 2025-04-21 09:09 | disposition home or self-care (01) ==
LOC: HO.HMCH 08:12
PROVIDERS: PCP Internal Medicine; Visit Provider Student in an Organized Health Care Education/Training Program
DX: Z76.89 Persons encountering health services in other specified circumstances (principal); R73.03 Prediabetes; K76.0 Fatty (change of) liver, not elsewhere classified; E55.9 Vitamin D deficiency, unspecified; G43.909 Migraine, unspecified, not intractable, without status migrainosus; F41.9 Anxiety disorder, unspecified; G47.33 Obstructive sleep apnea (adult) (pediatric); M15.1 Heberden's nodes (with arthropathy); M25.561 Pain in right knee; M25.511 Pain in right shoulder; M25.512 Pain in left shoulder; E78.5 Hyperlipidemia, unspecified

== ENCOUNTER 2025-04-21 09:14 | Outpatient (REF) | payer OTHER, SELFPAY ==
[2025-04-21 10:24] LABS: MANUAL DIFF FLAG NO
[2025-04-21 10:36] LABS: Hematocrit 42.7 % (37.0-47.0); Hemoglobin 14.2 g/dl (12.0-16.0); Imm Gran Abs Auto 0.02 X10*3/uL (0.00-0.03); Imm Gran Pct Auto 0.3 % (0.0-0.4); Lymphocytes Absolute Auto 1.8 X10*3/uL (1.2-4.9); Mean Corpuscular HGB Conc 33.3 g/dl (31.0-35.0); Mean Corpuscular Hemoglobin 30.3 pg (27.0-33.0); Mean Corpuscular Volume 91.2 fL (80.0-98.0); NRBC Abs Auto 0.000 X10*3/uL (0.0-0.012); NRBC Pct Auto 0.0 /100WBC (0.0-0.2); Platelet Count 217 X10*3/uL (160-400); Red Blood Count 4.68 X10*6/uL (4.20-5.50); White Blood Count 5.9 X10*3/uL (4.8-10.8)
[2025-04-21 10:45] LABS: Alanine Aminotransferase 27 U/L (0-31); Albumin Level 5.0 g/dL (3.5-5.0); Alkaline Phosphatase 68 U/L (39-117); Anion Gap 11 (12-20); Aspartate Amino Transferase 32 U/L (5-31); Blood Urea Nitrogen 15 mg/dL (9-16); Calcium 9.4 mg/dL (8.4-10.2); Carbon Dioxide 28 mmol/L (22-29); Chloride 107 mmol/L (96-108); Cholesterol 193 mg/dL (<200); Estimated Glomerular Filt Rate > 60; HDL Cholesterol 56 mg/dL (>40); Potassium 4.9 mmol/L (3.3-5.1); Sodium 141 mmol/L (135-145); Total Protein 7.3 g/dL (6.5-8.0); Triglycerides 136 mg/dL (<150)
[2025-04-21 11:10] LABS: Hemoglobin A1C 149.9958 umol/L
[2025-04-21 14:05] LABS: Reflex LDLD? No
[2025-04-25 07:04] LABS: Vitamin D 25-OH, D2 8 ng/mL; Vitamin D 25-OH, D3 25 ng/mL; Vitamin D 25-OH, Total 33 ng/mL (30-100)
== END 2025-04-21 09:15 | disposition home or self-care (01) ==
LOC: HO.10HDL 09:14
PROVIDERS: Visit Provider Student in an Organized Health Care Education/Training Program
DX: Z00.00 Encounter for general adult medical examination without abnormal findings (principal); Z13.1 Encounter for screening for diabetes mellitus; Z13.220 Encounter for screening for lipoid disorders; E55.9 Vitamin D deficiency, unspecified; Z13.6 Encounter for screening for cardiovascular disorders
CPT/HCPCS: 36415; 80053; 80061; 82306; 83036; 85025

== ENCOUNTER 2025-04-30 | Outpatient (REF) | payer OTHER, SELFPAY ==
--- OUTSIDE RECORDS SUMMARY | 2024-01-21 04:00 | XMS_ITS ---
Author Organization [facility] [place] Address [address] [place] [address] Care Team Providers Care Landscape Crew Member Name Role Phone Migration, Provider Unavailable Unavailable REASON FOR VISIT [facility] [place] Vital Signs Temperature 98.1 degrees Fahrenheit 01/21/20 24 Blood pressure systolic 108 mm Hg 01/21/20 24 Blood pressure diastolic 70 mm Hg 024 Heart Rate 72 /min 01/21/2024 Height 5.0 in 01/21/2024 Weight 177.00 lbs 01/21/2024 Head Circumference 0.0 in 01/21/2024 BMI 4977.24 kg/m2 01/21/2024 Oximetry 96.00 % 01/21/2024 Height-cm 12.70 cm 01/21/2024 Weight-kg 80.29 kg 01/21/2024 Encounters Encounter Location Date Provider Diagnosis [address] [address] 01/21/2024 Provider Migration Plan Of Treatment No Information Progress Notes * YURIY STALEYB:1960 (64 yo F)Acc No.[id number]:01/21/2024 Patient: ISRAEL ADLER Provider: Tor mcclendon Migration :1960 A ge:63 Y S ex:Female Date:01/21/2024 Address:[facility] [address] [place] [address] Subjective: * Chief Complaints: * E MR-Trevor Objective: * Vitals: B P: 108/70 mm Hg, HR: 72 /min, Temp: 98.1 F, Oxygen sat %: 96.00 %, Ht: 5.0 in, Wt: 177.00 lbs, BMI: 4977.24 Index, Wt-k.29 kg, Ht-cm: 12.70 cm, HC: 0.0 in. * Electronic signature of Prov ider Migration on 06/09/2025 at 12:33 PM EST Sign off status: Pending * Provider: Tor mcclendon Migration Date: 0 01/21/2024 Generated for Mara lundberg/Sana/Yazitting on: 0 06/09/2025 12:33 PM EST
--- OUTSIDE RECORDS SUMMARY | 2024-10-13 04:00 | XMS_ITS ---
Author Organization [facility] [place] Address [address] [place] [address] Care Team Providers Care Chemical Engineering Teacher Name Role Phone Migration, Provider Unavailable Unavailable REASON FOR VISIT EMR-Trevor Vital Signs Temperature 97.9 degrees Fahrenheit 10/14/19 25 Blood pressure systolic 115 mm Hg 10/14/19 25 Blood pressure diastolic 80 mm Hg 025 Heart Rate 80 /min 10/13/2024 Height 5.0 in 10/13/2024 Weight 180.00 lbs 10/13/2024 Head Circumference 0.0 in 10/13/2024 BMI 5061.60 kg/m2 10/13/2024 Oximetry 96.00 % 10/13/2024 Height-cm 12.70 cm 10/13/2024 Weight-kg 81.65 kg 10/13/2024 Encounters Encounter Location Date Provider Diagnosis [address] [address] 10/13/2024 Provider Migration Plan Of Treatment No Information Progress Notes * YURIY STALEYB:1960 (64 yo F)Acc No.[id number]:10/13/2024 Patient: ISRAEL ADLER Provider: Tor mcclendon Migration :1960 A ge:63 Y S ex:Female Date:10/13/2024 Address:[facility] [place] [address] Subjective: * Chief Complaints: * E MR-Trevor Objective: * Vitals: B P: 115/80 mm Hg, HR: 80 /min, Temp: 97.9 F, Oxygen sat %: 96.00 %, Ht: 5.0 in, Wt: 180.00 lbs, BMI: 5061.60 Index, Wt-k.65 kg, Ht-cm: 12.70 cm, HC: 0.0 in. * Electronic signature of Prov ider Migration on 06/09/2025 at 12:33 PM EST Sign off status: Pending * Provider: Tor mcclendon Migration Date: 0 10/13/2024 Generated for Mara lundberg/Sana/Yazitting on: 0 06/09/2025 12:33 PM EST
--- NOTE | ~2025-04-30 | XR_ITS ---
EXAMINATION: X-ray bilateral shoulders CLINICAL INFORMATION: Shoulder pain COMPARISON: None TECHNIQUE: X-ray bilateral shoulders each 4 views FINDINGS: Left shoulder: Mild superior positioning of the clavicle respect the acromion, could reflect sprain injury. No visible acute fracture or dislocation. Glenohumeral joint space is maintained. No abnormal soft tissue calcification. No suspicious bony lesion. Right shoulder: Mild superior positioning of the acromion with respect to the clavicle could reflect sprain injury. Mild acromioclavicular arthritis. Subacromial spurring. No visible acute fracture, dislocation or suspicious bony lesion. XR/XR Shoulder Hua min 2V IMPRESSION: Left shoulder: Mild acromioclavicular malalignment, could reflect sprain injury. No acute fracture Right shoulder: Mild acromioclavicular arthritis could reflect sprain injury. Mild acromioclavicular arthritis. No acute fracture Electronically signed by: Michael Barber MD 05/02/2025 11:11 AM KIT
--- NOTE | ~2025-04-30 | XR_ITS ---
EXAMINATION: XR HAND, RIGHT CLINICAL INFORMATION: M21.90 - Unspecified acquired deformity of unspecified limb COMPARISON: None available. TECHNIQUE: PA, lateral, and oblique views of the right hand. FINDINGS: No visible acute fracture, dislocation or suspicious bony lesion. Bone mineralization is decreased. Ulnar negative variance. Moderate-severe first CMC arthritis. Corticated ossification along the lateral aspect of the joint. There is a flexion at the fifth PIP joint. There is mild arthritis in the PIP and DIP joints, including involving the third PIP and third DIP joint. No abnormal soft tissue calcification. XR/XR hand RT min 3V IMPRESSION: First CMC and moderate-severe arthritis. Corticated ossification adjacent to the joint. Flexion at the fifth PIP joint. Additional arthritic changes as detailed above. No acute fracture. Electronically signed by: Michael Barber MD 05/02/2025 01:19 PM EST
--- NOTE | ~2025-04-30 | XR_ITS ---
EXAMINATION: XR KNEE, RIGHT CLINICAL INFORMATION: M25.561 - Pain in right knee COMPARISON: None available. TECHNIQUE: Four views of the right knee. FINDINGS: Mild medial compartment arthritis. Lateral compartment marginal spurring. Patellofemoral joint space loss on the lateral view. No visible acute fracture, dislocation or suspicious bony lesion. No significant effusion. No abnormal soft tissue calcification. XR/XR knee RT 2V IMPRESSION: Mild tricompartment arthritis Electronically signed by: Michael Barber MD 05/02/2025 11:29 AM KIT
--- OUTSIDE RECORDS SUMMARY | 2025-04-30 10:20 | XMS_ITS | Patient Health Record ---
Author Organization [facility] Address [address] [place] [address] Care Team Providers Care Manager Of Training Name Role Phone Alex LEY, Ozzie Primary Care Provider Wilson Keita [phone] Allergies No Known Allergies Reason For Referral [...] Miscellaneous: Marital status: Occupation: X-Ray tech at [employer] Section Notes: Nonsmoker; no sig alcohol Nonsmoker; no sig alcohol Problems Problem Type SNOMED Code ICD Code Onset Dates Problem Status W/U Status Risk Notes Problem Colon cancer screening (525149038) Colon cancer screening (Z12.11) Active confirmed Problem Screening for malignant neoplasm of colon (886240627) Encounter for screening for malignant neoplasm of colon (Z12.11) Active confirmed Problem History of adenomatous polyp of colon (837424565) History of adenomatous polyp of colon (Z86.010) Active confirmed Problem Pre-procedure evaluation check (039227381) Pre-procedural examination (Z01.818) Active confirmed Problem Rectal pain (78482850) Rectal discomfort (K62.89) Active confirmed Problem History of polyp of colon (situation) (123084067) History of colonic polyps (Z86.010) Active confirmed Problem Diverticulosis of colon (900682116) Diverticulosis of colon (K57.30) Active confirmed Problem History of adenomatous polyp of colon (984120033) Hx of adenomatous polyp of colon (Z86.010) Active confirmed Plan Of Treatment Future Test Test Name Order Date COLONOSCOPY 10/14/2018 COLONOSCOPY 11/13/2022 Insurance Providers Payer Name Payer Address Payer Phone Subscriber Number Group Number Insured Name Patient Relationship to Insured Coverage Start Date Coverage End Date [employer] [place] [address] [address] [place] [address] [id number] [place] ST[place] Self - patient is the insured Medical (General) History Medical History History ICD Code Denies MT,DM,CVA,Lung disease,renal dise ase Tubular adenoma removed in and 2005--each < 5mm; neg. colonoscopy in 2011-all with Dr. Frausto Hyperlipidemia Sleep apnea-uses CPAP Colonoscopy in January with a small tubular adenoma removed and small internal hemorrhoids noted Anxiety Surgical History Surgery Date(Month/Year) Knee surgery 1999 Hand surgery 2004
--- OUTSIDE RECORDS SUMMARY | 2025-05-14 04:00 | XMS_ITS ---
Author Organization [facility] [place] Address [address] [place] [address] Care Team Providers Care Hospice Clinical Supervisor Name Role Phone Migration, Provider Unavailable Unavailable REASON FOR VISIT EMR-Trevor Encounters Encounter Location Date Provider Diagnosis [address] [address] 05/14/2025 Provider Migration Plan Of Treatment No Information Progress Notes * YURIY STALEYB:1960 (64 yo F)Acc No.[id number]:05/14/2025 Patient: KELY ADLERA :1960 A ge:64 Y S ex:Female Address:[facility] [address] [place] [address] Subjective: * Chief Complaints: * E MR-Trevor * * Date:
--- OUTSIDE RECORDS SUMMARY | 2025-06-09 12:34 | XMS_ITS | Patient Health Record ---
Author Organization [facility], [place] Address [address] [place] [address] Care Team Providers Care Tents Assembler Name Role Phone Migration, Provider Unavailable Unavailable Allergies No Known Allergies Reason For Referral No Information Medications Medication SIG (Take, Route, Frequency, Duration) Notes Start Date End Date Status rosuvastatin 10 mg tablet oral; Duration: 90 TAKE ONE TABLET BY MOUTH AT BEDTIME *Reorder from [facility] for eRx and Interaction Alerts* 04/26/2024 Active ergocalciferol (vitamin D2) 1,250 mcg (50,000 unit) capsule by mouth once a week *Reorder from [employer] for eRx and Interaction Alerts* 01/05/2024 Active Crestor 20 MG Tablet Oral at bedtime; Duration: 90 08/26/2022 Active PARoxetine HCl 30 MG Tablet Oral Discontinue Reason:Change per new prescription 01/16/2023 Active Immunizations Vaccine Route Administration Date Status Comme nts Flu vaccine no Preserv 3 and > IM Intramuscular 02/12/2023 Administered Problems Problem Type SNOMED Code ICD Code Onset Dates Problem Status W/U Status Risk Notes Problem Vitamin D deficiency (77784627) Vitamin D deficiency, unspecified (E55.9) 2024 Active confirmed Vitamin D deficiency, unspecified Problem Mixed hyperlipidemia (721039911) Mixed hyperlipidemia (E78.2) 2022 Active confirmed Mixed hyperlipidemia Problem Obstructive sleep apnea syndrome (disorder) (80388565) Obstructive sleep apnea (adult) (pediatric) (G47.33) 2023 Active confirmed Obstructive sleep apnea (adult) (pediatric) Problem Fatty liver (323962800) Fatty (change of) liver, not elsewhere classified (K76.0) 2022 Active confirmed Fatty (change of) liver, not elsewhere classified Problem Trochanteric bursitis of right hip (878608729776837 ) Trochanteric bursitis, right hip (M70.61) 2022 Active confirmed Trochanteric bursitis, right hip Problem Adult health examination (277855295) Encounter for general adult medical examination without abnormal findings (Z00.00) 2023 Active confirmed Well Exam w/o Abnormal Findings Problem Therapeutic drug monitoring, quantitative (regime/therapy) (29308244) Encounter for therapeutic drug level monitoring (Z51.81) 2023 Active confirmed Encounter for therapeutic drug level monitoring Problem Prediabetes (274717863) Prediabetes (R73.03) 2023 Active confirmed Prediabetes Vital Signs Heart Rate 80 /min 10/13/2024 Temperature 97.9 degrees Fahrenheit 10/13/2024 Height-cm 12.70 cm 10/13/2024 Oximetry 96.00 % 10/13/2024 Blood pressure diastolic 80 mm Hg 10/13/2024 Head Circumference 0.0 in 10/13/2024 Weight-kg 81.65 kg 10/13/2024 Height 5.0 in 10/13/2024 Blood pressure systolic 115 mm Hg 10/13/2024 Weight 180.00 lbs 10/13/2024 BMI 5061.60 kg/m2 10/13/2024 Encounters Encounter Location Date Provider Diagnosis [facility], [address] [address] 10/13/2024 Provider Migration [facility], [address] [address] 05/14/2025 Provider Migration [facility], [place] [address] [address] 05/15/2025 Provider Migration Plan Of Treatment No Information Insurance Providers Payer Name Payer Address Payer Phone Subscriber Number Group Number Insured Name Patient Relationship to Insured Coverage Start Date Coverage End Date [employer] Benef[employer] Adm [address] [address] [place] [address] [place] ST[place] Self - patient is the insured
--- OUTSIDE RECORDS SUMMARY | 2025-06-09 12:34 | XMS_ITS | Patient Health Record ---
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[employer] Section Notes: Nonsmoker; no sig alcohol Nonsmoker; no sig alcohol Problems Problem Type SNOMED Code ICD Code Onset Dates Problem Status W/U Status Risk Notes Problem Colon cancer screening (845462228) Colon cancer screening (Z12.11) Active confirmed Problem Screening for malignant neoplasm of colon (306993987) Encounter for screening for malignant neoplasm of colon (Z12.11) Active confirmed Problem History of adenomatous polyp of colon (210461681) History of adenomatous polyp of colon (Z86.010) Active confirmed Problem Pre-procedure evaluation check (962361944) Pre-procedural examination (Z01.818) Active confirmed Problem Rectal pain (26724560) Rectal discomfort (K62.89) Active confirmed Problem History of polyp of colon (situation) (739839696) History of colonic polyps (Z86.010) Active confirmed Problem Diverticulosis of colon (369912060) Diverticulosis of colon (K57.30) Active confirmed Problem History of adenomatous polyp of colon (326018935) Hx of adenomatous polyp of colon (Z86.010) Active confirmed Plan Of Treatment Future Test Test Name Order Date COLONOSCOPY 10/14/2018 COLONOSCOPY 11/13/2022 Insurance Providers Payer Name Payer Address Payer Phone Subscriber Number Group Number Insured Name Patient Relationship to Insured Coverage Start Date Coverage End Date [employer] [place] [address] [address] [place] [address] [id number] [place] ST[place] Self - patient is the insured Medical (General) History Medical History History ICD Code Denies NE,DM,CVA,Lung disease,renal dise ase Tubular adenoma removed in and 2005--each < 5mm; neg. colonoscopy in 2011-all with Dr. Frausto Hyperlipidemia Sleep apnea-uses CPAP Colonoscopy in January with a small tubular adenoma removed and small internal hemorrhoids noted Anxiety Surgical History Surgery Date(Month/Year) Knee surgery 1999 Hand surgery 2004
== END 2025-04-30 00:01 ==
LOC: HO.XRAY
PROVIDERS: PCP Student in an Organized Health Care Education/Training Program; Visit Provider Student in an Organized Health Care Education/Training Program
DX: M25.561 Pain in right knee (principal); M25.511 Pain in right shoulder; M25.512 Pain in left shoulder; M21.90 Unspecified acquired deformity of unspecified limb
CPT/HCPCS: 73030; 73130; 73560

== ENCOUNTER → 2025-04-30 11:04 | Outpatient (BNV) | payer OTHER, SELFPAY | PROVIDERS: PCP Student in an Organized Health Care Education/Training Program; Visit Provider Radiology Diagnostic Ultrasound | DX: M19.011 Primary osteoarthritis, right shoulder (principal); M25.512 Pain in left shoulder; M18.11 Unilateral primary osteoarthritis of first carpometacarpal joint, right hand; M17.11 Unilateral primary osteoarthritis, right knee | CPT/HCPCS: 73030; 73130; 73560 ==